=== PATIENT | male | born 1995 | race African-American/Black ===

== ENCOUNTER 2019-02-21 09:34 | Emergency (ER) | payer MEDICAID ==
[~2019-02-21] VITALS: Ht 190.5 cm; Wt 81.1 kg
[~2019-02-21 09:34] MED LIST: QUET100T PO; QUET100T33 PO
[2019-02-21] MEDS ORDERED: TRAZ-252 PO (09:44)
[2019-02-21 12:00] VITALS: BP 118/84
== END 2019-02-21 12:25 | disposition home or self-care (01) ==
LOC: EMS 09:35
DX: Z00.00 Encounter for general adult medical examination without abnormal findings (principal); F10.20 Alcohol dependence, uncomplicated; F41.9 Anxiety disorder, unspecified; F32.9 Major depressive disorder, single episode, unspecified; Z87.891 Personal history of nicotine dependence; Z79.899 Other long term (current) drug therapy